=== PATIENT | male | born 1945 | race Caucasian/White ===

== ENCOUNTER 2020-04-26 05:46 | Day surgery (SDC) | payer MEDICARE ==
[~2020-04-26] VITALS: Ht 174 cm; Wt 88.6 kg
[~2020-04-26 05:46] MED LIST: ASPI-515 PO; MULT-516 PO; OMEP20TA62 PO; TERA2CAP3 PO; VITAMIN PACK PO; [UNRECOGNIZED DRUG - OTHER] PO
[2020-04-26] MEDS ORDERED: LACTATED RINGERS 1,000 ML IV SCH (06:21)
[2020-04-26 06:24] VITALS: BP 147/85
[2020-04-26] MEDS ORDERED: CHLORHEXIDINE 15 ML UDC MM ONE (06:30)
[2020-04-26] MEDS ORDERED: LIDOCAINE-MPF 1%, 2ML INFIL ONE (06:30)
[2020-04-26] MEDS ORDERED: SUCCINYLCHOLINE 20 MG/ML, 10ML ONE (07:08)
[2020-04-26] MEDS ORDERED: PROPOFOL 10 MG/ML, 20ML ONE ×2 (07:08→08:13)
[2020-04-26] MEDS ORDERED: LIDOCAINE-MPF 2% ,5ML ONE (07:08)
[2020-04-26] MEDS ORDERED: FENTANYL PF 100 MCG/2ML ONE (07:08)
[2020-04-26] MEDS ORDERED: ONDANSETRON 2MG/ML, 2ML IVPush PRN (07:30)
[2020-04-26] MEDS ORDERED: FENTANYL PF 100 MCG/2ML IV PRN (07:30)
[2020-04-26] MEDS ORDERED: DEXAMETHASONE 4 MG/ML, 1ML ONE ×3 (08:06)
[2020-04-26] MEDS ORDERED: OMNIPAQUE 350 MG/ML, 50 ML BOTTLE ONE (08:30)
== END 2020-04-26 11:20 | disposition home or self-care (01) ==
LOC: OUT 05:46
PROVIDERS: ATTEND Internal Medicine Geriatric Medicine
DX: R93.5 Abnormal findings on diagnostic imaging of other abdominal regions, including retroperitoneum (principal); Z11.59 Encounter for screening for other viral diseases; K57.10 Diverticulosis of small intestine without perforation or abscess without bleeding; K20.8 Other esophagitis; F17.210 Nicotine dependence, cigarettes, uncomplicated; Z79.82 Long term (current) use of aspirin; Z79.899 Other long term (current) drug therapy; Z88.5 Allergy status to narcotic agent; Z88.8 Allergy status to other drugs, medicaments and biological substances; Z72.89 Other problems related to lifestyle; Z85.828 Personal history of other malignant neoplasm of skin
CPT/HCPCS: 36415; 43237; 43239; 43262; 43264; 74328; 87635; 88305; 93005; C1769; J0330; J1100; J2704; J3010; J7120; Q9967